=== PATIENT | female | born 1945 | race Caucasian/White ===

== ENCOUNTER → 2016-12-13 | Outpatient (CLI) | payer OTHER ==
--- NOTE | 2016-12-13 12:55 | REPMRS ---
Patient History The patient states she had a clinical breast exam in 11/2016. Patient is postmenopausal. Family history of breast cancer in mother at age 75. Digital Woman Screen Mammo: December 13, 2016 - Exam #: [id number] Bilateral CC and MLO view(s) were taken. Technologist: Alexandrea Arora, Technologist Prior study comparison: October 19, 2015, digital woman screen mammo performed at [facility]. October 04, 2014, digital woman screen mammo performed at [facility] to [facility]. FINDINGS: The breast tissue is heterogeneously dense. This may lower the sensitivity of mammography. There has been no change in the appearance of the mammogram from the prior studies. There is a moderate amount of residual fibroglandular tissue which is fairly symmetric. There is no interval development of dominant mass, areas of architectural distortion, or clustered microcalcification typical of malignancy. ASSESSMENT: BI-RADS/ACR category 1 mammogram. Negative. Recommendation Routine screening mammogram in 1 year (for women over age 40). This mammogram was interpreted with the aid of an FDA-approved computer-aided dectection system. Electronically Signed By: Dany Oneill MD 12/13/16 2315
== END ==
LOC: M WHC 11:01
PROVIDERS: ATTEND Nurse Practitioner Women's Health
DX: Z01.419 Encounter for gynecological examination (general) (routine) without abnormal findings (principal); Z12.31 Encounter for screening mammogram for malignant neoplasm of breast; Z78.0 Asymptomatic menopausal state; Z12.12 Encounter for screening for malignant neoplasm of rectum; Z80.3 Family history of malignant neoplasm of breast
CPT/HCPCS: 82270; G0101; G0202

== ENCOUNTER → 2020-02-01 | Outpatient (CLI) | payer SELFPAY | LOC: M LABSMTC 09:38 | PROVIDERS: ATTEND Pediatrics | DX: Z11.59 Encounter for screening for other viral diseases (principal) ==

== ENCOUNTER → 2024-05-21 | Outpatient (CLI) | payer MEDICARE | LOC: M WHC 08:13 | PROVIDERS: ATTEND Internal Medicine | DX: Z12.31 Encounter for screening mammogram for malignant neoplasm of breast (principal); M85.89 Other specified disorders of bone density and structure, multiple sites; R92.333 Mammographic heterogeneous density, bilateral breasts ==

== ENCOUNTER → 2024-08-25 | Outpatient (REF) | payer MEDICARE ==
[2024-08-25 13:05] LABS: IRON (FE) 114.0 UG/DL (50-170)
[2024-08-25 13:06] LABS: PERCENT SATURATION 35.7 % (13.2-45.0)
== END ==
LOC: M LAB REF 12:01
PROVIDERS: ATTEND Internal Medicine
DX: D64.9 Anemia, unspecified (principal)

== ENCOUNTER → 2024-10-27 | Outpatient (CLI) | payer MEDICARE | LOC: M WUC 13:51 | PROVIDERS: ATTEND Physician Assistant | DX: S93.692A Other sprain of left foot, initial encounter (principal); S93.412A Sprain of calcaneofibular ligament of left ankle, initial encounter; M20.12 Hallux valgus (acquired), left foot; Y93.9 Activity, unspecified; Y92.9 Unspecified place or not applicable ==